=== PATIENT | female | born 1970 | race Caucasian/White ===

== ENCOUNTER 2019-11-02 11:08 | Emergency (ER) | payer OTHER, SELFPAY ==
[2019-11-02 11:15] VITALS: BP 172/112; PULSE 95; RESP 14; TEMP 36.4; O2SAT 97
--- NOTE | 2019-11-02 11:16 | ED.GENADULT ---
HPI - General Adult General Chief complaint: Skin/Abscess/Foreign Body Stated complaint: rash all over body Time Seen by Provider: 11/02/19 11:16 Source: patient Mode of arrival: ambulatory Limitations: no limitations History of Present Illness HPI narrative: 48-year-old female patient presents to the [facility] with complaints of a rash since yesterday. Patient states that she was out running some errands and went and ate some lunch with her son yesterday. Denies doing any kind of yard work or being outside. Patient states she noticed that she started with a rash on her left arm and has progressed to bilateral arms, the abdominal area and into the left leg. Denies any chest pain or shortness of breath. Denies any fevers. Denies any pain to the rash but states it is quite itchy. Patient states she does know she has very sensitive skin and usually has to use soaps lotions and detergents without any dyes or harsh chemicals because of her sensitive skin. Related Data Home Medications Medication Instructions Recorded Confirmed lisinopril 20 mg PO DAILY 11/02/19 11/02/19 omeprazole 20 mg PO DAILY 11/02/19 11/02/19 Allergies Allergy/AdvReac Type Severity Reaction Status Date / Time No Known Allergies Allergy Verified 11/02/19 11:29 Review of Systems Review of Systems: Narrative: CONSTITUTIONAL: Denies fever, chills, or sweats. EYES: Denies visual changes, redness, or discharge. ENT: Denies rhinorrhea, congestion, sore throat, or otalgia. CARDIOVASCULAR: Denies chest pain, palpitations, or edema. RESPIRATORY: Denies cough or dyspnea. GASTROINTESTINAL: Denies abdominal pain, nausea, vomiting, or diarrhea. GENITOURINARY: Denies dysuria or hematuria. SKIN: Positive rash with itching to bilateral arms, abdomen and left leg since yesterday. MUSCULOSKELETAL: Denies back pain, joint pain, or myalgia. NEUROLOGIC: Denies headache, numbness, or weakness. PSYCHIATRIC: Denies anxiety or depression. PMFSH Comments At the time of my signature I agree with nursing past medical history, surgical, social, and family history. There is no relevant family history pertinent to the presenting complaint. Exam Narrative: Exam Narrative: GENERAL: Well-appearing, well-nourished, and in no acute distress. HEAD: Normocephalic, atraumatic. EYES: PERRLA and EOMI. ENT: Nares clear, no rhinorrhea or epistaxis. Mucous membranes moist. NECK: Supple. No lymphadenopathy CHEST: Clear to auscultation. No respiratory distress. HEART: Regular rate and rhythm. No murmur heard. Normal peripheral pulses. ABDOMEN: Soft, nontender, nondistended, normal active bowel sounds. EXTREMITIES: Normal range of motion. No edema. SKIN: Patient has patches and papules with erythema noted to bilateral arms, abdomen and left thigh. Very scarce on the lower back. There is no open wounds or drainage noted noted. NEURO: No focal deficits. Alert and oriented x3. Course Vital Signs Vital signs: Vital Signs Temperature 36.4 C 11/02/19 11:15 Pulse Rate 95 11/02/19 11:15 Respiratory Rate 14 11/02/19 11:15 Blood Pressure 172/112 H 11/02/19 11:15 Pulse Oximetry 97 11/02/19 11:15 Temperature 36.4 C 11/02/19 11:15 Pulse Rate 95 11/02/19 11:15 Respiratory Rate 14 11/02/19 11:15 Blood Pressure 172/112 H 11/02/19 11:15 Pulse Oximetry 97 11/02/19 11:15 Vital signs reviewed. The patient has been informed that they may have pre-hypertension or Hypertension based on a BP reading in the department. I recommend that the patient call the primary care provider listed on their discharge instructions or a physician of their choice this week to arrange follow up for further evaluation of possible pre-hypertension or Hypertension Medical Decision Making Differential Diagnosis Differential Diagnosis: Differential diagnosis: Contact dermatitis, poison emilie, poison sumac, psoriasis, eczema, allergic reaction, drug reaction, scabies, tinea syphilis, lung disease, vi
== END 2019-11-02 11:35 | disposition home or self-care (01) ==
PROVIDERS: Emergency Provider Nurse Practitioner Family; PCP Internal Medicine
DX: L24.9 Irritant contact dermatitis, unspecified cause (principal); I10 Essential (primary) hypertension; K21.9 Gastro-esophageal reflux disease without esophagitis; E11.9 Type 2 diabetes mellitus without complications
CPT/HCPCS: 99213; G0463